=== PATIENT | male | born 2000 | race Caucasian/White ===

== ENCOUNTER 2019-09-12 01:43 | Emergency (ER) | payer SELFPAY ==
--- NOTE | 2019-09-12 01:56 | ED ---
Substance Abuse/Use - HPI Summary HPI Summary: 18 year old male presents to the ED by EMS with a chief complaint of alcohol intoxication. Patient was running away from a democrat when he tripped and fell on his head. Patient received a small laceration on his forehead secondary to the fall. No LOC. Patient has no PMHx, no PSHx. - History Of Current Complaint Stated Complaint: ETOH PER EMS Time Seen by Provider: 09/12/19 01:47 Hx Obtained From: Patient Onset/Duration of Drug/ETOH Abuse: Hours Ingestion History: Type/Name Of Drug - ETOH Character: Stuporous Aggravating Factor(s): Nothing Alleviating Factor(s): Nothing Associated Signs And Symptoms: Negative PMH/Surg Hx/FS Hx/Imm Hx EENT History: Denies: Hx Deafness - Social History Alcohol Use: Weekly Hx Substance Use: No Review of Systems Negative: Fever Positive: Other - abrasion on forehead All Other Systems Reviewed And Are Negative: Yes Physical Exam - Summary Physical Exam Summary: Appearance: Well-appearing, Well-nourished, awake and alert, slightly slurred speech. Small abrasion on right forehead. Skin: Warm, dry, no obvious rash Eyes: sclera anicteric, no conjunctival pallor HENT: mucous membranes moist, pharynx appears normal. Neck: Supple, nontender Respiratory: Clear to auscultation, no signs of respiratory distress Cardiovascular: Normal S1, S2. No murmurs. Normal distal pulses in tibial and radial bilaterally. Abdomen: Soft, nontender, normal active bowel sounds present Musculoskeletal: Normal, Strength/ROM Intact Neurological: Minimal slurring of speech. Psychiatric: Affect normal. Triage Information Reviewed: Yes Vital Signs Reviewed: Yes Procedures - Sedation Patient Received Moderate/Deep Sedation with Procedure: No Course/Dx - Course Course Of Treatment: 18 year old male presents to the ED by EMS with a chief complaint of alcohol intoxication. Patient was running away from a democrat when he tripped and fell on his head. Patient received a small laceration on his forehead secondary to the fall. No LOC. Patient has no PMHx, no PSHx. Upon exam patient is awake and alert with a mild abrasion on his forehead. Patient's diagnosis is alcohol intoxication, and he will be discharged home. Patient agrees and understands the plan. - Diagnoses Provider Diagnoses: Alcohol intoxication Discharge ED - Sign-Out/Discharge Documenting (check all that apply): Patient Departure - discharge home - Discharge Plan Condition: Good Disposition: HOME Patient Education Materials: Head Injury (ED), Alcohol Intoxication (ED), Abrasion (ED) Referrals: [facility] [Outside] - If Needed - Billing Disposition and Condition Condition: GOOD Disposition: Home - Attestation Statements Document Initiated by Gradyibe: Yes Documenting Scribe: Xavier Deluca Provider For Whom Arleth is Documenting (Include Credential): Dr. Marciano Tam Scribe Attestation: Xavier Brower, scribed for Dr. Marciano Tam on 09/13/19 at 0211. Scribe Documentation Reviewed: Yes Provider Attestation: The documentation as recorded by the Xavier zavala accurately reflects the service I personally performed and the decisions made by , Dr. Marciano Tam Status of Scribe Document: Viewed
[2019-09-12 05:07] VITALS: BP 117/70
== END 2019-09-12 05:06 | disposition home or self-care (01) ==
LOC: ED 01:43
DX: F10.129 Alcohol abuse with intoxication, unspecified (principal); S01.81XA Laceration without foreign body of other part of head, initial encounter; W19.XXXA Unspecified fall, initial encounter; Y92.9 Unspecified place or not applicable
CPT/HCPCS: 99282